=== PATIENT | male | born 1970 | race Caucasian/White ===

== ENCOUNTER 2016-08-12 19:53 | Emergency (ER) | payer BC ==
--- NOTE | ~2016-08-12 | ER ---
PATIENT'S NAME: FUENTES CRONIN [facility] AGE: 45 Y [address] ROOM: [place] [address] LOCATION: ED ADMIT DATE: 08/12/2016 ER/Outpatient Report DISCHARGE DATE: 08/12/2016 FAMILY PHYSICIAN: Galileo Dunlap MD ATTENDING PHYSICIAN: Mari Pfeiffer Time of Arrival: 1953 hours. Time of Evaluation: 2005 hours. CHIEF COMPLAINT: Thumb laceration. HISTORY OF PRESENT ILLNESS: This is a 45-year-old male, who presents to the ER, who states he cut his thumb approximately 90 minutes prior to arrival. The patient states he was cooking supper and cut the tip of his thumb with a knife. He states he is not for sure when his last tetanus shot was. He denies any other problems at this time. ALLERGIES: NO KNOWN ALLERGIES. MEDICATIONS: Please see medication list nurse's notes. PAST MEDICAL HISTORY: Cataract surgery and knee scope. SOCIAL HISTORY: Chews tobacco. Drinks one beer daily. REVIEW OF SYSTEMS: CONSTITUTIONAL: Denies any change in weight or fatigue. MUSCULOSKELETAL: No weakness or myalgias. SKIN: He has a laceration to the distal aspect of his left thumb. PHYSICAL EXAMINATION: VITAL SIGNS: Height 6 feet and 2 inches stated, weight 108.6 kg taken, blood pressure is 148/81, pulse 76, respirations 14, temperature 97.7 degrees tympanically, and saturations 96% on room air. Slaton Coma Score is 15. GENERAL: Alert, calm, well-developed, 45-year-old, in no acute distress. EXTREMITIES: No clubbing or cyanosis. He does have full range of motion of his left thumb with no difficulties. SKIN: He has an approximated laceration to the distal aspect of his left thumb. It does involve in the very distal aspect of his left thumbnail, it is [facility] 45 Y [address] ROOM: [place] [address] LOCATION: ED ADMIT DATE: 08/12/2016 ER/Outpatient Report DISCHARGE DATE: 08/12/2016 FAMILY PHYSICIAN: Galileo Dunlap MD ATTENDING PHYSICIAN: Mari Pfeiffer not actively bleeding at this time. The nail is attached to the skin. LABORATORY DATA AND X-RAYS: None were done. IMPRESSION: A 1 cm laceration noted to the distal left thumb involving the distal aspect of his thumbnail. ASSESSMENT AND PLAN: I did cleanse the site with normal saline and repaired the laceration with Dermabond skin glue. The patient did tolerate this well. We did give him a thumb splint for protection while he is at work. He may ice and elevate the finger and follow up with his primary care physician if needed. The patient was also updated on his tetanus shot. He denies any other problems at this time. JORGITO ALVARES PA-C FOR MD MARY KEE/colleen /[id number] d: t: 08/16/16 1624, OUTPATIENT REPORT
== END 2016-08-12 20:27 | disposition disaster alternative care site (69) ==
LOC: GMED 19:53
PROC: 0HQGXZZ Repair Left Hand Skin, External Approach (ICD-10-PCS; principal; 2016-08-12)
DX: S61.112A Laceration without foreign body of left thumb with damage to nail, initial encounter (principal); F17.220 Nicotine dependence, chewing tobacco, uncomplicated; Z98.890 Other specified postprocedural states; Z79.899 Other long term (current) drug therapy; W26.0XXA Contact with knife, initial encounter; Y93.G3 Activity, cooking and baking; Y99.8 Other external cause status

== ENCOUNTER 2016-08-24 19:52 | Emergency (ER) | payer BC ==
--- NOTE | ~2016-08-24 | ER ---
[facility] 45 Y [address] ROOM: [place] [id number] LOCATION: [facility] ADMIT DATE: 08/24/2016 ER/Outpatient Report DISCHARGE DATE: 08/24/2016 FAMILY PHYSICIAN: Galileo Dunlap MD ATTENDING PHYSICIAN: Philip Kwong TIME SEEN: 2020 hours. HISTORY OF PRESENT ILLNESS: The patient is a 45-year-old male who was using a kitchen knife when he accidentally lacerated the distal end of his left thumb. IMMUNIZATIONS: Tetanus is current. ALLERGIES: NONE. CURRENT MEDICATIONS: Levothyroxine. MEDICAL HISTORY: Hypothyroidism. SURGERIES: Previous knee scope and cataract surgery. SOCIAL HISTORY: Nonsmoker. Alcohol, occasionally. REVIEW OF SYSTEMS: All negative except for the thumb laceration. PHYSICAL EXAMINATION: Exam of his left thumb showed a laceration on the lateral side. The skin edges were well approximated. There was no active bleeding. The laceration was probably 1-2 cm. ASSESSMENT: A 1-cm laceration, distal left thumb. PLAN OF TREATMENT: The area was cleansed. Topical Dermabond. Applied Band-Aid. The patient advised to keep it dry and clean. Avoid any topical antibiotics. Wear guard PATIENT'S NAME: FUENTES CRONIN [facility] AGE: 45 Y [address] ROOM: [place] [id number] LOCATION: [facility] ADMIT DATE: 08/24/2016 ER/Outpatient Report DISCHARGE DATE: 08/24/2016 FAMILY PHYSICIAN: Galileo Dunlap MD ATTENDING PHYSICIAN: Philip Kwong at work. Follow up as needed. ANALILIA FANG FOR MD TIFFANIE FINK/colleen /[id number] d: 08/24/169 t: 09/01/16 1209, OUTPATIENT REPORT
== END 2016-08-24 20:29 | disposition disaster alternative care site (69) ==
LOC: GACC 19:52
PROC: 0HQGXZZ Repair Left Hand Skin, External Approach (ICD-10-PCS; principal; 2016-08-24)
DX: S61.012A Laceration without foreign body of left thumb without damage to nail, initial encounter (principal); E03.9 Hypothyroidism, unspecified; Z79.899 Other long term (current) drug therapy; Z98.890 Other specified postprocedural states; W26.0XXA Contact with knife, initial encounter